=== PATIENT | male | born 1995 | race Caucasian/White ===

== ENCOUNTER 2017-10-08 19:02 | Emergency (ER) | payer OTHER ==
[2017-10-08] MEDS ORDERED: LIDOCAINE 1% INJ-PF (10 MG/ML) 30 ML SDV INJ ONE (19:32)
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
== END 2017-10-08 20:23 | disposition home or self-care (01) ==
LOC: ER 19:02
DX: S01.512A Laceration without foreign body of oral cavity, initial encounter (principal); Y04.2XXA Assault by strike against or bumped into by another person, initial encounter; Y92.199 Unspecified place in other specified residential institution as the place of occurrence of the external cause
CPT/HCPCS: 99283; 12011; J3490